=== PATIENT | female | born 2000 | race Caucasian/White ===

== ENCOUNTER 2018-01-11 18:49 | Emergency (ER) | payer SELFPAY ==
--- NOTE | 2018-01-11 19:03 | EDPHY ---
H & P Stated Complaint: left sie breast axillary chest wall pain x 2 days Time Seen by Provider: 01/11/18 19:03 - Personal History LMP (Females 10-55): 1-7 Days Ago Current Tetanus Diphtheria and Acellular Pertussis (TDAP): Yes - Medical/Surgical History Hx Asthma: Yes Hx Chronic Respiratory Disease: No Hx Diabetes: No Hx Cardiac Disease: No Hx Renal Disease: No Hx Cirrhosis: No Hx Alcoholism: No Hx HIV/AIDS: No Hx Splenectomy or Spleen Trauma: No Other PMH: none - Social History Smoking Status: Never smoked Constitutional: Initial Vital Signs Temperature (C) 36.8 C 01/11/18 18:52 Heart Rate 73 01/11/18 18:52 Respiratory Rate 16 01/11/18 18:52 Blood Pressure 113/74 01/11/18 18:52 O2 Sat (%) 98 01/11/18 18:52 O2 Delivery Mode Room Air Allergies/Adverse Reactions: No Known Allergies Allergy (Unverified 01/11/18 18:52) Home Medications: Medication Instructions Recorded Ibuprofen [Motrin] 800 mg PO Q8 #20 tab 01/11/18 Medical Decision Making - Diagnostics Imaging: I viewed and interpreted images myself ED Course/Re-evaluation: CHIEF COMPLAINT: Chest pain HISTORY OF PRESENT ILLNESS: The patient is a 17 y/o patient complaining of an intermittent left chest and breast pain, onset 4 days ago. Yesterday she felt tremulous, but denies fever, cough or sore throat. The pain has not improved, which concerned her. Currently she is not in pain, but the pain typically comes and goes every couple of hour. She denies abnormal lifting or working out. No headache, shortness of breath, abdominal pain, urinary or bowel complaints, numbness, paresthesias. REVIEW OF SYSTEMS: A comprehensive 10 system review of systems is otherwise negative aside from elements mentioned in the history of present illness and medical decision making. PHYSICAL EXAM: HR, BP, O2 Sat, RR. Temp noted General Appearance: Alert, well hydrated, appropriate, and non-toxic appearing. Head: Atraumatic without scalp tenderness or obvious injury Eyes: Pupils equal, round, reactive to light and accommodation, EOMI, no trauma , no injection. Ears: Clear bilaterally, no perforation, normal landmarks Nose: Atraumatic, no rhinorrhea, clear. Throat: There is no erythema or exudates, no lesions, normal tonsils, mucus membranes moist. Neck: Supple, 2+ carotid upstroke, nontender, no lymphadenopathy. Respiratory: No retractions, no distress, no wheezes, and no accessory muscle use. Lungs are clear to auscultation bilaterally. Cardiovascular: Regular rate and rhythm, no murmurs, rubs, or gallops. Bilateral carotid, radial, dorsalis pedis, and posterior tibial pulses intact. Good capillary refill all extremities. Gastrointestinal: Abdomen is soft, nontender, non-distended, no masses, no rebound, no guarding, no peritoneal signs. Musculoskeletal: Normal active ROM of all extremities, atraumatic. Neurological: Alert, appropriate, and interactive. The patient has normal DTRs and non-focal cranial nerves, motor, sensory, and cerebellar exam. Skin: No rashes, good turgor, no nodules on palpation. Past medical history: Denies Past surgical history: Denies Family history: Denies Social history: Family at bedside, lives in [place], single DIAGNOSTICS/PROCEDURES/CRITICAL CARE TIME: EKG: The 12 lead EKG was interpreted by myself as sinus rhythm with a rate of 63. See hard copy and/or "tracemaster" electronic copy for interpretation. Chest x-ray: No acute findings DIFFERENTIAL DIAGNOSIS: The differential diagnosis for the patient's chest pain included but was not limited to chest wall tenderness, myocardial ischemia, pulmonary embolus, chest wall pain, pleural inflammation, and pulmonary infectious causes. MEDICAL DECISION MAKING: The patient is a 17 y/o patient complaining of presenting with intermittent left chest and breast pain, onset 4 days ago. She has a normal physical exam and has no point tenderness. She has a heart score of 0. Labs, EKG, and chest x- ray ordered. 1906: I reviewed patient's EKG which reveals sinus rhythm with a rate of 63. 1923: I reviewed patient's chest x-ray which reveals no acute findings. 1932: Reassessed patient and discussed normal laboratory and imaging findings. I have prescribed her Motrin for pain and inflammation. Return precautions provided; patient is comfortable with this plan. - Data Points Laboratory Results: 01/11/18 01/11/18 19:14 19:13 POC Hgb 15.6 gm/dL gm/dL (12.6-16.3) POC Hct 46 % % (38-47) POC Sodium 144 mEq/L mEq/L (135-145) POC Potassium 3.5 mEq/L mEq/L (3.3-5.0) POC Chloride 105 mEq/L mEq/L (97-110) POC BUN 9 mg/dL mg/dL (7-23) POC Creatinine 0.6 mg/dL mg/dL (0.6-1.0) POC Glucose 96 mg/dL mg/dL (70-100) POC Troponin I 0.00 ng/mL ng/mL (0.00-0.08) Point of Care Test Results: Chemistry 01/11/18 01/11/18 19:14 19:13 POC Sodium 144 mEq/L mEq/L (135-145) POC Potassium 3.5 mEq/L mEq/L (3.3-5.0) POC Chloride 105 mEq/L mEq/L (97-110) POC BUN 9 mg/dL mg/dL (7-23) POC Creatinine 0.6 mg/dL mg/dL (0.6-1.0) POC Glucose 96 mg/dL mg/dL (70-100) POC Troponin I 0.00 ng/mL ng/mL (0.00-0.08) ISTAT H&H 01/11/18 19:14 POC Hgb 15.6 gm/dL gm/dL (12.6-16.3) POC Hct 46 % % (38-47) Departure - Departure Disposition: Home, Routine, Self-Care Clinical Impression: Chest wall tenderness Condition: Good Instructions: Chest Wall Pain (ED) Additional Instructions: 1. Take Motrin as prescribed. 2. Follow-up with your primary doctor within 72 hours. 3. Return to the Emergency Department for fever, chest pain, shortness of breath , increasing pain or other worsening of condition. Referrals: [facility],. [Clinic] - As per Instructions Prescriptions: Ibuprofen [Motrin] 800 mg PO Q8 #20 tab Report Scribed for: Leon Kim Report Scribed by: Sophie Flanagan Date of Report: 01/11/18 Time of Report: 19:05
[2018-01-11 19:52] VITALS: BP 100/64
--- NOTE | 2018-01-11 20:29 | CPEKG ---
Test Reason : OPEN Blood Pressure : / mmHG Vent. Rate : 063 BPM Atrial Rate : 063 BPM P-R Int : 125 ms QRS Dur : 080 ms QT Int : 393 ms P-R-T Axes : 002 027 049 degrees QTc Int : 403 ms Sinus rhythm Atrial premature complex Confirmed by Leon Kim [id number] on 01/11/2018 8:29:07 PM Referred By: Confirmed By:Leon Kim
== END 2018-01-11 19:52 | disposition home or self-care (01) ==
DX: R07.89 Other chest pain (principal)
CPT/HCPCS: 82435-PO; 82565-PO; 82947-PO; 84132-PO; 84295-PO; 84484-PO; 84520-PO; 85014-PO